=== PATIENT | female | born 1945 | race Caucasian/White ===

== ENCOUNTER → 2020-11-06 | Outpatient (CLI) | payer MEDICARE, OTHER ==
--- NOTE | 2020-11-06 15:35 | XR ---
EXAMINATION TYPE: XR chest 2V DATE OF EXAM: 11/06/2020 COMPARISON: 12/01/2013 TECHNIQUE: PA and lateral views submitted. HISTORY: COPD FINDINGS: The lungs are clear and there is no pneumothorax, pleural effusion, or focal pneumonia. Hiatal juan jose ia noted. There is hypertrophic and degenerative changes of the spine with age indeterminate compress ion deformities. There are couple. Progressed from the prior exam of 14 with a severe deformity seen in the lower thoracic spine. Atherosclerotic change aorta. No overt failure. No pneumothorax. Coarsen ed interstitium. IMPRESSION: 1. No acute process. Coarsened interstitium correlate for chronic interstitial lung disease. 2. Retrocardiac density may represent aortic ectasia or small hiatal hernia. 3. Progression of numerous compression fractures throughout the thoracic spine correlate clinically.
--- NOTE | 2020-11-06 15:37 | XR ---
EXAMINATION TYPE: XR knee complete LT DATE OF EXAM: 11/06/2020 COMPARISON: NONE HISTORY: Pain TECHNIQUE: Three views are submitted. FINDINGS: Joint spaces are preserved. Osseous structures are intact. No acute fracture seen. Postsurgical ch cabrera involving the tibia. Narrowing of the medial lateral compartments of the knee joint. Vascular ca lcifications noted. IMPRESSION: 1. No acute fracture or dislocation. 2. Osteoarthritis. 3. Diffuse osteopenia.
== END | disposition home or self-care (01) ==
LOC: RADXRYALE 15:02
PROVIDERS: ATTEND Physician Assistant Medical
DX: M17.12 Unilateral primary osteoarthritis, left knee (principal); M85.862 Other specified disorders of bone density and structure, left lower leg; S22.008A Other fracture of unspecified thoracic vertebra, initial encounter for closed fracture; J44.9 Chronic obstructive pulmonary disease, unspecified
CPT/HCPCS: 71046

== ENCOUNTER → 2021-03-19 | Outpatient (CLI) | payer MEDICARE, OTHER ==
--- NOTE | 2021-03-19 17:39 | XR ---
Left ankle and left foot HISTORY: Trauma 4 days prior, pain 3 views the left ankle, 3 views of the left foot submitted There is an oblique fracture with minimal displacement of the distal diaphyseal left fibula. Question some local cortical thickening on the oblique view, findings may be chronic. There is soft tissue sw elling. Bone mineralization is reduced. Cortical lucency is also present at the metaphysis of the dis ym right tibia medially and also noted posteriorly on the lateral exam. Questionable lucency also pr esent of the distal tibia on the oblique view into the tibiotalar joint. Foot also shows decreased mi neralization. This could limit evaluation. IMPRESSION: Findings consistent with distal tibia and fibular fractures, acuity is indeterminate, cor relate for history of remote trauma and fracture. Alternate imaging could be performed for additional evaluation as indicated.
== END | disposition home or self-care (01) ==
LOC: RADXRYALE 14:59
PROVIDERS: ATTEND Physician Assistant
DX: M79.672 Pain in left foot (principal)

== ENCOUNTER → 2021-04-04 | Outpatient (CLI) | payer MEDICARE, OTHER ==
--- NOTE | 2021-04-04 14:41 | CT ---
EXAMINATION TYPE: CT ankle LT wo con DATE OF EXAM: 04/04/2021 COMPARISON: 03/19/2021 HISTORY: Left ankle pain after fall. CT DLP: 247.8 mGycm Automated exposure control for dose reduction was used. CONTRAST: CT scan of the ankle is performed without contrast. FINDINGS- Casting material is seen which obscures bony detail. There is severe diffuse osteopenia.. Appears to be fracture line extending to the ankle mortise involving the medial margin of the distal tibia and i nvolving the medial malleolus. Sagittal image demonstrates a mildly displaced posterior tibial fracture. There also appears to be a fracture with mild facet placement involving the distal diaphysis of the f ibula. There is no significant callus formation. Ankle mortise joint spaces preserved. Tiny calcification or metallic density seen overlying the plantar surface of the foot adjacent to the lateral margin of th e calcaneus. Soft tissue edema noted. IMPRESSION- 1. Severe osteopenia with mildly displaced fracture involving the distal diaphysis fibula, distal med ial tibia, and posterior margin of the tibia
== END | disposition home or self-care (01) ==
LOC: RADCTMAIN 14:03
PROVIDERS: ATTEND Orthopaedic Surgery
DX: S82.842A Displaced bimalleolar fracture of left lower leg, initial encounter for closed fracture (principal); M25.572 Pain in left ankle and joints of left foot; X58.XXXA Exposure to other specified factors, initial encounter

== ENCOUNTER → 2021-05-14 | Outpatient (CLI) | payer MEDICARE, OTHER ==
--- NOTE | 2021-05-14 17:21 | BD ---
EXAMINATION TYPE: Axial Bone Density DATE OF EXAM: 05/14/2021 COMPARISON: NONE CLINICAL HISTORY: Postmenopausal screening Height: 57.5 IN Weight: 131 LBS FRAX RISK QUESTIONS: Family History (Parent hip fracture): YES MOTHER History of Fracture in Adulthood: LT ANKLE FX AGE 73; BALA TIB FIB FX AGE 67; BALA RIB FX OFF AND ON S NANCIE AGE 62 Secondary Osteoporosis: Current Tobacco Use: YES RISK FACTORS HISTORY OF: Family History of Osteoporosis: YES MOTHER Active: LIMITED Diet low in dairy products/other sources of calcium: YES Postmenopausal woman: AGE 52 TOTAL HYST Take estrogen and/or progesterone medications: NOT NOW How long: AGE [age] Lost more than 2 inches in height since high school: YES 4+" MEDICATIONS: Osteoporosis Medications: NOT NOW Which medication: Boniva How Lon MONTHS Additional Medications: VIT D, CALCIUM, CELEBREX EXAM MEASUREMENTS: Bone mineral densitometry was performed using the [employer] System. Bone mineral density as measured about the Lumbar spine is: ----- L1-L4(G/cm2): 0.895 T Score Values are as follows: ----- L2: -1.7 ----- L3: -2.6 ----- L4: -3.2 ----- L1-L4: -2.4 Bone mineral density BASELINE Bone mineral density about the R hip (g/cm2): 0.707 Bone mineral density about the L hip (g/cm2): 0.733 T Score values are as follows: -----R Neck: -2.4 -----L Neck: -2.2 -----R Total: -3.1 -----L Total: -2.6 Bone mineral density BASELINE IMPRESSION: Osteoporosis (T Score less than -2.5). There is increased fracture risk and therapy is usually indicated based on age. Re-Screen 1-2 years. NOTE: T-SCORE=SD OF THE YOUNG ADULT MEAN.
--- NOTE | 2021-05-15 10:49 | MM ---
Reason for exam: screening (asymptomatic). History: Patient is postmenopausal. Took estrogen for 1 year beginning at age 52. Physical Findings: A clinical breast exam by your physician is recommended on an annual basis and results should be correlated with mammographic findings. MG 3D Screening Mammo W/Cad Bilateral CC and MLO view(s) were taken. No prior studies available for comparison. There are scattered fibroglandular densities. Stable benign calcifications. There is no discrete abnormality. No significant changes when compared with prior studies. ASSESSMENT: Benign, BI-RAD 2 RECOMMENDATION: Routine screening mammogram of both breasts in 1 year.
== END | disposition home or self-care (01) ==
LOC: RADBDWWP 13:20
PROVIDERS: ATTEND Family Medicine
DX: Z12.31 Encounter for screening mammogram for malignant neoplasm of breast (principal); M81.0 Age-related osteoporosis without current pathological fracture
CPT/HCPCS: 77063; 77067; 77080

== ENCOUNTER → 2022-09-16 | Outpatient (CLI) | payer MEDICARE, OTHER ==
--- NOTE | 2022-09-17 08:49 | XR ---
EXAMINATION TYPE: XR chest 2V DATE OF EXAM: 09/16/2022 COMPARISON: 11/06/2020 TECHNIQUE: PA and lateral views submitted. HISTORY: Shortness of breath FINDINGS: The lungs are clear and there is no pneumothorax, pleural effusion, or focal pneumonia. Heart size normal and no overt failure. Osseous structures demonstrate hypertrophic and degenerative changes of the spine. Dictation of the aorta noted. Prominence of the pulmonary arteries can be associated with pulmonary arterial hypertension. Numerous chronic appearing compression fractures are again noted and appear similar to prior exam. Re sultant kyphosis of the spine. Chronic rib deformities are noted. Coarsened interstitium suggests chr onic interstitial lung disease and there is hyperinflation suggestive of COPD. IMPRESSION: 1. No acute process. Correlate for COPD and chronic interstitial lung disease
== END | disposition home or self-care (01) ==
LOC: RADXRYALE 16:17
PROVIDERS: ATTEND Physician Assistant
DX: R06.02 Shortness of breath (principal)
CPT/HCPCS: 71046

== ENCOUNTER → 2022-12-02 | Outpatient (CLI) | payer MEDICARE, OTHER ==
--- NOTE | 2022-12-04 08:48 | CTL ---
EXAMINATION TYPE: CT Low Dose Lung DATE OF EXAM ORDERED: 12/02/2022 HISTORY: Z12.2; Z87.891. Current smoker, 50 pack year history. Lung cancer screening CT DLP: 67.[address] CTDI: 2.1 mGy Automated exposure control for dose reduction was used. SCREENING VISIT: First screening visit COMPARISON: Chest radiograph 11/11/2022 TECHNIQUE: Low dose computed tomography scan was performed through the chest at 1 mm thick sections a nd reconstructed images in multiple planes at 1 mm and [address] DIAGNOSTIC QUALITY: Satisfactory FINDINGS: LUNG NODULES: No clinically significant pulmonary nodules. LUNGS: COPD: Severity: Moderate Fibrosis: Severity: Mild Lymph nodes: None Other findings: None RIGHT PLEURAL SPACE: Effusion: None Calcification: None Thickening: None Pneumothorax: None LEFT PLEURAL SPACE: Effusion: None Calcification: None Thickening: None Pneumothorax: None HEART: Heart Size: Normal Coronary Calcification: Moderate Pericardial Effusion: None OTHER FINDINGS: Upper abdomen: None Bony thorax: No acute osseous abnormality. Multilevel chronic appearing central compression deformiti es of the thoracolumbar spine involving T3, T5, T6, T7, T8, T9, T10, T11, T12, L1, and L2. Resulting in increased thoracic kyphosis. Remote sternal fracture. Remote left-sided rib fractures. Supraclavicular region: None Other: Tortuous descending thoracic aorta. Atherosclerotic calcification of the aorta and its branche s. IMPRESSION: 1. No clinically significant pulmonary nodules. 2. Mild to moderate COPD changes and fibrotic changes. 3. Multilevel chronic appearing compression fractures of the thoracic lumbar spine. CT LUNG RAD AND CT CHEST RECOMMENDATION: Lung-Rad 1 Negative: Continue annual screening with LDCT in 12 months. S Modifier (other clinically significant findings): None
== END | disposition home or self-care (01) ==
LOC: RADCTMAIN 14:54
PROVIDERS: ATTEND Internal Medicine
DX: Z12.2 Encounter for screening for malignant neoplasm of respiratory organs (principal); J44.9 Chronic obstructive pulmonary disease, unspecified; M48.55XA Collapsed vertebra, not elsewhere classified, thoracolumbar region, initial encounter for fracture; F17.210 Nicotine dependence, cigarettes, uncomplicated
CPT/HCPCS: 71271

== ENCOUNTER → 2023-05-20 | Outpatient (CLI) | payer MEDICARE, OTHER ==
--- NOTE | 2023-05-20 18:04 | CA ---
Transthoracic Echo Report Name: Lia Calderon Age: 77 Gender: F : 1945 Exam Date: 05/20/2023 16:11 Exam Location: [facility] Ht (in): 59 Wt (lb): 115 Ordering Physician: Jett Lindquist MD Attending/Referring Phys: Maci Malone NPC Svp Group Director Tiara Castillo RDCS Procedure CPT: Indications: I51.7 Cardiomegaly Cardiac Hx: smoker Technical Quality: Fair Contrast 1: Total Dose (mL): Contrast 2: Total Dose (mL): MEASUREMENTS (Male / Female) Normal Values 2D ECHO LV Diastolic Diameter PLAX 4.3 cm 4.2 - 5.9 / 3.9 - 5.3 cm LV Systolic Diameter PLAX 2.9 cm IVS Diastolic Thickness 1.2 cm 0.6 - 1.0 / 0.6 - 0.9 cm LVPW Diastolic Thickness 0.9 cm 0.6 - 1.0 / 0.6 - 0.9 cm LV Relative Wall Thickness 0.5 RV Internal Dim ED PLAX 3.8 cm LVOT Diameter 2.0 cm LA Systolic Diameter LX 3.6 cm 3.0 - 4.0 / 2.7 - 3.8 cm LV Diastolic Volume MOD 4C 44.5 cm??? LV Systolic Volume MOD 4C 22.0 cm??? LV Ejection Fraction MOD 4C 50.6 % LV Cardiac Index MOD 4C 1141.1 cm???/min???m??? LV Diastolic Length 4C 6.8 cm LV Systolic Length 4C 6.1 cm LV Diastolic Volume MOD 2C 120.6 cm??? LV Systolic Volume MOD 2C 75.5 cm??? LV Ejection Fraction MOD 2C 37.4 % LV Cardiac Index MOD 2C 2282.0 cm???/min???m??? LV Diastolic Length 2C 6.8 cm LV Systolic Length 2C 6.0 cm LA Volume 36.1 cm??? 18 - 58 / 22 - 52 cm??? LA Volume Index 24.4 cm???/m??? 16 - 28 cm???/m??? M-MODE Aortic Root Diameter MM 2.8 cm AV Cusp Separation MM 1.5 cm DOPPLER AV Peak Velocity 129.3 cm/s AV Peak Gradient 6.7 mmHg MV Area PHT 2.8 cm??? Mitral E Point Velocity 40.0 cm/s Mitral A Point Velocity 77.7 cm/s Mitral E to A Ratio 0.5 MV Deceleration Time 269.3 ms MV E' Velocity 2.1 cm/s Mitral E to MV E' Ratio 19.1 TR Peak Velocity 459.7 cm/s TR Peak Gradient 84.5 mmHg Right Ventricular Systolic Press 92.0 mmHg FINDINGS Left Ventricle Left ventricular ejection fraction is estimated at 40-45 %. Left ventricular cavity size normal. Mildly increased septal wall thickness. Flattening of ventricular septum in systole and diastole Right Ventricle Moderate right ventricular dilatation. Severe pulmonary hypertension. Right ventricular systolic pressure estimated at 92 mm hg.reduced right ventricular global systolic function. Right Atrium Normal right atrial size. Left Atrium Normal left atrial size. Mitral Valve Structurally normal mitral valve. No mitral stenosis or prolapse.mild mitral regurgitation. Aortic Valve Trileaflet aortic valve. No aortic valve stenosis or regurgitation. Tricuspid Valve Structurally normal tricuspid valve. [id number] tricuspid regurgitation. Pulmonic Valve Pulmonic valve not well visualized. No pulmonic regurgitation. Pericardium No pericardial effusion. Aorta Normal size aortic root and proximal ascending aorta. CONCLUSIONS 1. Moderate global hypokinesis of the left ventricle systolic function with evidence of right ventricular pressure overload 2. Dilated right ventricle with hypokinesis and severe pulmonary hypertension 3. Mild to moderate tricuspid regurgitation with mild mitral regurgitation Previewed by: Dr. Isaura Gabriel MD (Electronically Signed) Final Date: 20 May 2023 18:04
== END | disposition home or self-care (01) ==
LOC: RADECHMAIN 15:56
PROVIDERS: ATTEND Family Medicine
DX: I27.20 Pulmonary hypertension, unspecified (principal); I34.0 Nonrheumatic mitral (valve) insufficiency; I51.7 Cardiomegaly; I36.1 Nonrheumatic tricuspid (valve) insufficiency
CPT/HCPCS: 93306

== ENCOUNTER 2023-07-28 09:45 | Day surgery (SDC) | payer MEDICARE, OTHER ==
[~2023-07-28 09:45] MED LIST: ALPRAZolam 0.25 MG TAB PO PRN; NITROGLYCERIN SL TABS 0.4 MG TAB SUBLINGUAL PRN
[2023-07-28 10:22] LABS: Basophils # (A) 0.1 k/uL (0-0.2); Basophils % (A) 1 %; Eosinophils # (A) 0.1 k/uL (0-0.7); Eosinophils % (A) 1 %; HGB 16.3 gm/dL (11.4-16.0); Lymphocytes # (A) 2.9 k/uL (1.0-4.8); Lymphocytes % (A) 18 %; MCH 30.5 pg (25.0-35.0); MCV 95.2 fL (80.0-100.0); Mean Platelet Volume 8.2; Monocytes % (A) 6 %; Neutrophils # (A) 11.5 k/uL (1.3-7.7); Neutrophils % (A) 72 %; Platelet Count 256 k/uL (150-450); RBC 5.36 m/uL (3.80-5.40); RDW 14.1 % (11.5-15.5); WBC 15.9 k/uL (3.8-10.6)
[2023-07-28] MEDS: SODIUM CHLORIDE 0.9% 1,000 ML in EMPTY BAG 1 BAG IV SCH (10:28)
[2023-07-28 10:43] LABS: African American GFR (CKD) 57 (>60 ml/min/1.73 sqM); Anion Gap 11 mmol/L; Blood Urea Nitrogen 32 mg/dL (7-17); Calcium 9.4 mg/dL (8.4-10.2); Carbon Dioxide 18 mmol/L (22-30); Chloride 110 mmol/L (98-107); Glucose 104 mg/dL (74-99); Non-African American GFR(CKD) 49 (>60 ml/min/1.73 sqM); Sodium 139 mmol/L (137-145)
[2023-07-28] MEDS: ALPRAZolam 0.5 MG TAB PO PRN (11:30)
[2023-07-28] MEDS: fentaNYL (PF) 50 MCG/ML 2 ML AMP IVP ONE ×2 (12:15)
[2023-07-28] MEDS: MIDAZOLAM 2 MG/2 ML VIAL IVP ONE (12:15)
[2023-07-28] MEDS: LIDOCAINE 1% INJ 10MG/ML (20 ML MDV) SQ ONE (12:17)
[2023-07-28] MEDS: VERAPAMIL 2.5 MG/ML 2 ML AMP INTRAARTER ONE (12:21)
[2023-07-28] MEDS: SODIUM CHLORIDE 0.9% 1,000 ML IV ONE (12:40)
[2023-07-28 12:58] LABS: O2 Sat Blood Gas 82.7 %
[2023-07-28 13:08] LABS: O2 Sat Blood Gas 55.8 %
[2023-07-28 13:09] LABS: O2 Sat Blood Gas 53.4 %
[2023-07-28] MEDS: HEPARIN SODIUM 1,000 UN/ML (10ML VL) IV ONE (13:30)
[2023-07-28] MEDS: CLOPIDOGREL 75 MG TAB PO ONE (13:43)
[2023-07-28] MEDS: IOPAMIDOL-370 100ML BTL INJ ONE ×2 (13:44→14:13)
[2023-07-28] MEDS: NITROGLYCERIN 1000MCG/10ML SYRINGE INTRACORON ONE (13:51)
--- NOTE | 2023-07-28 14:01 | P.CARDCATH ---
Date of Procedure: 07/28/23 Description of Procedure: DIAGNOSTIC CORONARY ANGIOGRAPHY, RIGHT and LEFT HEART CATH REPORT PROCEDURES PERFORMED: Right heart catheterization Left heart catheterization Selective coronary angiography Moderate conscious sedation 50 mins Ultrasound assisted right radial access Ultrasound assisted right common femoral access Right common femoral arteriogram Right subclavian artery arteriogram INDICATION: 77-year-old female with past medical history of smoking, hypertension presented to cardiology clinic because of dyspnea on exertion. She reports that her symptoms have got worse last few months. She reports getting short of breath after walking 1 block. This puts her at NYHA class III to IV symptoms. Her echocardiogram showed an EF of 40 to 45%. It also showed severe pulmonary hypertension. To further workup patient's symptoms, cardiomyopathy and pulmonary hypertension we will plan for left and right heart catheterization. CONSENT: I have explained the procedural steps of above-mentioned procedures in layman's terms to the patient. I discussed the risks (including but not limited to stroke, emergent vascular or cardiac surgery or ), benefits and alternative therapies for the above-mentioned procedure. I discussed the risks of sedation/analgesia and blood product administration (if indicated). The patient has indicated understanding and acceptance of these risks. Conscious Sedation: Patient's ECG, heart rate, blood pressure, pulse oximetry were monitored throughout the duration of procedure under my direct supervision. [2] mg Versed and 25 mg Fentanyl were used for induction of moderate conscious sedation. Total duration of moderate concious sedation 60 minutes. PROCEDURE: After explaining the risks, benefits and alternatives of the above mentioned procedures in detail to the patient, informed consent was obtained. Patient was taken to the catheterization lab, prepped and draped in usual sterile fashion using universal precuations. Barbow and alix test were performed to confirm adequate perfusion to fingers. Ultrasound was used to identify the radial artery. 1% lidocaine was infiltrated over the right radial artery. A 6-Wallisian sheath was placed and secured in the right radial artery using modified Seldinger technique. The sheath was flushed and 2.5 mg verapamil was administered intra-arterially. Right antecubital vein access was obtained in the pre of holding area. 1% lidocaine was infiltrated in the right antecubital area. Right antecubital vein cannula was exchanged over the wire for the 6 Wallisian slender glide sheath. The sheath was secured and flushed. Through the sheath a 6 [place] catheter was advanced to the wedge position. The wedge pressures were obtained. Sequential pressures were obtained from pulmonary artery, right ventricle, right atrium. Blood samples were collected from pulmonary artery right ventricle and right atrium. Thermodilution study was performed while the catheter tip was placed in pulmonary artery. J tipped wire was advanced under fluoroscopic guidance. The wire could not be advanced from the right subclavian artery to the ascending aorta. Over the J- wire JR4 diagnostic catheter was advanced. Right subclavian artery angiogram was performed. A Glidewire was advanced with the JR4 catheter. This wire could not cross into the ascending aorta. The wire and the catheter was removed. Decision was made to proceed with right common femoral access. Right common femoral artery was identified using the ultrasound. 1% lidocaine was infiltrated over the right common femoral artery. Using ultrasound guidance and modified Seldinger technique using a micropuncture needle right common femoral access was obtained. The needle was exchanged over the wire for a 6 Wallisian slender glide sheath. The sheath was flushed and secured. Right common femoral angiogram was performed. Through the sheath the wire was advanced into the aorta. The aorta is very tortuous. A JR4 catheter was loaded over the wire to direct the wire to the ascending aorta. With the help of the wire JR4 catheter was prolapsed across the aortic valve to enter the LV. The wire was removed LV pressures were obtained. A pullback was performed. The catheter was manipulated to selectively engage right coronary ostium. Right coronary angiogram was performed. The catheter was exchanged over the wire for a JL 3.5 diagnostic catheter. The catheter was flushed and manipulated to engage the left coronary ostium. Left coronary angiogram was performed in different angiographic projections. After review of images, we decided to consult associate software development engineer for PCI of LCx and IFR assessment of proximal LAD. HEMODYNAMICS: Aortic Pressure: 105/51 mmHg. LV pressure: 111/4 mmHg. LVEDP 13 mmHg. There was no significant gradient across the aortic valve. Right heart catheterization Mean RA pressure 9 mmHg RV pressure 75/5 mmHg. RVEDP 13 mmHg PA pressure 75/40 mmHg. mean PA pressures 51 mmHg Mean wedge pressure 7 mmHg PA sat 53% RV sat 54% RA sat 56% FA sat 83% Patient was at room air Heart rate 64 bpm, BSA 1.43, hemoglobin 13.1. Merry cardiac output 3.9 L/min. Merry cardiac index 2.77 L/min/m Thermodilution cardiac output 2.6 L/min. Thermodilution cardiac index 1.8 L/min/m Transpulmonary gradient 44 mmHg Pulmonary vascular resistance 11 vanegas unit SELECTIVE CORONARY ARTERIOGRAPHY: LEFT MAIN: Left main is very short. Ostial left main has 20% stenosis. It bifurcates into LAD and LCx. LEFT ANTERIOR DESCENDING CORONARY ARTERY: Proximal LAD has 30 to 40% luminal i rregularities. Mid and distal LAD has mild luminal diabetes. It gives rise to 2 medium size diagonal branches appears in graphically normal. After giving second diagonal branch LAD becomes small. LEFT CIRCUMFLEX CORONARY ARTERY: It is nondominant vessel. Left circumflex is a moderate caliber vessel. Mid LAD has tubular calcific 90% stenosis. RIGHT CORONARY ARTERY: Dominant vessel. Proximal RCA has 20 to 30% diffuse calcific irregularities. Mid RCA has 30 to 40% calcific disease. Mid RCA has a small ectasia. Distal RCA has mild luminal irregularities. It gives rise to PDA and PL branches which appears angiographically normal IMPRESSION: 90% mid LCx stenosis 30% Proximal LAD 20% ostial LM disease Moderate nonobstructive calcific disease in RCA. Severe pulmonary hypertension, less likely group 2. Most likely group 3 Tortuous descending aorta. Tortuous right subclavian artery PLAN: Plan for IFR assessment of LAD and PCI of LCx. Discussed with Dr. Sanchez Further recommendations to follow. Performing Physician Felice Olguin MD, FACC, RPVI Thank you for allowing [facility] to participate in this patient's care. Feel free to reach out in case of any followup questions.
[2023-07-28] MEDS ORDERED: RX INFO: IV CONTRAST WAS GIVEN 1 EACH MISC MISCELLANE PRN (14:08)
--- NOTE | 2023-07-28 14:18 | P.PN ---
Subjective Progress Note Date: 07/28/23 Patient had an outpatient heart catheterization today She got intervention to left circumflex artery. This was done via right common femoral approach. She also has a right radial TR band. We also performed a right radial heart cath using right antecubital vein. Plan to remove right femoral arterial sheath once the ACT is less than 180. We did not do a closure device because of calcification noticed on ultrasound of right common femoral artery. We will monitor patient overnight I have educated the family. I have notified the family that time indication for next 2 weeks tomorrow. In case they have any questions regarding cardiology care they can contact our clinic. If right groin site and right radial site appears intact, patient can be discharged home tomorrow. Recommended discharge medications aspirin 81, Plavix 75 mg, atorvastatin 40 mg. Smoking cessation Outpatient follow-up with pulmonology for group 3 pulmonary hypertension. Patient would benefit from supplemental oxygen. Felice Olguin MD Objective - Vital Signs Vital signs: Vital Signs Temp 97.9 F 07/28/23 10:17 Pulse 70 07/28/23 10:17 Resp 18 07/28/23 10:17 BP 141/95 07/28/23 10:17 Pulse Ox 100 07/28/23 10:17 FiO2 Intake & Output 07/27/23 07/28/23 07/28/23 18:59 06:59 18:59 Intake Total 1450 Balance 1450 Weight 49.5 kg Intake: IV 1450 - Labs CBC & Chem 7: 07/28/23 10:05 07/28/23 10:05 Labs: Abnormal Lab Results - Last 24 Hours (Table) 07/28/23 07/28/23 Range/Units 10:05 10:05 WBC 15.9 H (3.8-10.6) k/uL Hgb 16.3 H (11.4-16.0) gm/dL Hct 51.0 H (34.0-46.0) % Neutrophils # 11.5 H (1.3-7.7) k/uL Chloride 110 H (98-107) mmol/L Carbon Dioxide 18 L (22-30) mmol/L BUN 32 H (7-17) mg/dL Creatinine 1.10 H (0.52-1.04) mg/dL Glucose 104 H (74-99) mg/dL
--- NOTE | 2023-07-28 14:21 | P.PRCINT ---
Percutaneous Coronary Int. - Percutaneous Coronary Intervention Percutaneous Coronary Intervention: PROCEDURES PERFORMED: Left coronary angiography, iFR of LAD, iFR of circumflex, PCI of mid circumflex with a 2.25 x 15mm Xience ISABEL, post dilated with a 2.5mm NC balloon INDICATION: cardiomyopathy, dyspnea and exertion with [place] Heart Association class III symptoms CONSENT:I have discussed the risks, benefits and alternative therapies for the above-mentioned procedure and for both sedation/analgesia as well as necessary blood product administration, if indicated, as they pertain to this patient. The patient has indicated understanding and acceptance of the risks and procedures discussed. PROCEDURE: After the risks, benefits and alternatives of the above mentioned procedure explained in detail with the patient, informed consent was obtained. Patient was taken to the catheterization lab and prepped and draped in usual fashion. right radial sheath had been placed however difficulty navigating the torturous subclavian and therefore a 6-Egyptian sheath had previously been placed in the femoral artery. There was some concern of proximal LAD disease and therefore iFR of the LAD and circumflex was recommended. Heparin was given. A 6-Egyptian CLS 3.0 guide was used to engage the left main. A 0.014 pressure wire was advanced in the proximal LAD and normalized. It was then advanced into the mid LAD and iFR was normal at 0.98. Next the wire was again normalized and then placed 1 cm distal to the circumflex lesion. iFR was abnormal at 0.70. The decision was made to perform PCI of the circumflex. Predilation was performed with a 2.5 x 8 mm balloon. Next a 2.25 x 15 mm Xience ISABEL was placed in the mid circumflex. The proximal and midportion of the stent were postdilated with a 2.5 noncompliant balloon. Final angiograms were performed. Preintervention there was 90% stenosis and KATHRYN-3 flow and postintervention there was less than 10% stenosis and KATHRYN-3 flow. The femoral artery appeared to be small caliber and felt best treated with manual pull. The right radial sheath was removed and a TR band was placed with hemostasis achieved. The patient tolerated the procedure well. Patient was transported back to the post catheterization holding area in stable condition. Conscious Sedation: Patient was monitored under the direct supervision of myself for conscious sedation using Versed and fentanyl for a total duration of 37 minutes HEMODYNAMICS: Ao: 133/77 SELECTIVE CORONARY ARTERIOGRAPHY: LEFT MAIN: The left main is a large caliber vessel which bifurcates into the LAD and circumflex. There is no significant stenosis. LEFT ANTERIOR DESCENDING CORONARY ARTERY: LAD is a large caliber vessel which wraps around to the apex. There is a proximal LAD 30-40% stenosis and mild 20- 30% mid LAD stenosis. LEFT CIRCUMFLEX CORONARY ARTERY: Left circumflex is a moderate caliber vessel with a mid circumflex 90% stenosis and other mild luminal irregularities. The circumflex is significantly pressure was. RIGHT CORONARY ARTERY: The right coronary artery was not imaged, see separate report FINAL IMPRESSION: 1. CAD as described above including proximal LAD 30-40%, mid circumflex 90% stenosis 2. Normal iFR LAD, abnormal iFR circumflex 3. S/p PCI of mid circumflex with a 2.25 x 15mm Xience ISABEL, post dilated with a 2.5mm NC balloon PLAN: 1. Aggressive risk factor modification per most recent ACC/AHA guidelines. 2. Dual antiplatelets with aspirin and Plavix for 6 months. 3. Advised tobacco cessation in detail with patient and patient understanding. Additionally gave patient information for [place] quit line.
[2023-07-28] MEDS: SODIUM CHLORIDE 0.9% 1,000 ML IV SCH (18:37)
[2023-07-28] MEDS: ASPIRIN 325 MG TAB PO ONE (19:51)
[2023-07-28] MEDS: ATORVASTATIN 40 MG TAB PO SCH (20:38)
[2023-07-29 07:59] VITALS: BP 115/72; PULSE 73; RESP 15; TEMP 97.9
[2023-07-29] MEDS: CLOPIDOGREL 75 MG TAB PO SCH (08:22)
[2023-07-29] MEDS: ASPIRIN 81 MG PO SCH (08:23)
--- NOTE | 2023-07-29 09:42 | P.DS ---
Providers Attending physician: Felice Olguin MD Primary care physician: Jodi Mercy Hospital Course: Patient is a pleasant 77 yo female with history of tobacco abuse and mild cardiomyopathy who has been having significant BISHOP and therefore underwent left and right heart cath 07/27 with findings of obstructive circumflex disease and underwent successful PCI of mid circumflex. Her radial and femoral site are stable with no hematoma. She admits she feels somewhat better even just walking to the bathroom. She will be on aspirin and Plavix for 6 months. Plan - Discharge Summary Discharge Rx Participant: Yes New Discharge Prescriptions: New Aspirin 81 mg PO DAILY 90 Days #90 tab Atorvastatin [Lipitor] 40 mg PO HS 90 Days #90 tab Clopidogrel [Plavix] 75 mg PO DAILY 90 Days #90 tab Continue Baclofen [Lioresal] 20 mg PO Q8H PRN PRN Reason: Muscle Pain Mirtazapine [Remeron] 15 mg PO HS Sertraline [Zoloft] 100 mg PO HS Fluticasone/Umeclidin/Vilanter [Trelegy Ellipta 100-62.5-25] 1 inhalation INHALATION DAILY Acetaminophen [Tylenol Extra Strength] 1,000 mg PO Q8H PRN PRN Reason: Pain Discontinued Aspirin 81 mg PO DAILY PRN PRN Reason: Per Protocol Discharge Medication List Baclofen [Lioresal] 20 mg PO Q8H PRN 02/09/14 [History] Acetaminophen [Tylenol Extra Strength] 1,000 mg PO Q8H PRN 07/25/23 [History] Fluticasone/Umeclidin/Vilanter [Trelegy Ellipta 100-62.5-25] 1 inhalation INHALATION DAILY 07/25/23 [History] Mirtazapine [Remeron] 15 mg PO HS 07/25/23 [History] Sertraline [Zoloft] 100 mg PO HS 07/25/23 [History] Aspirin 81 mg PO DAILY 90 Days #90 tab 07/28/23 [Rx] Atorvastatin [Lipitor] 40 mg PO HS 90 Days #90 tab 07/28/23 [Rx] Clopidogrel [Plavix] 75 mg PO DAILY 90 Days #90 tab 07/28/23 [Rx] Follow up Appointment(s)/Referral(s): Felice Olguin MD [Medical Doctor] - 1 Week Patient Instructions/Handouts: Moderate Sedation (DC), After Radial Heart Catheterization (GEN) Activity/Diet/Wound Care/Special Instructions: *NO LIFTING, PUSHING, OR PULLING ANYTHING OVER 5 POUNDS FOR 5 DAYS *NO DRIVING FOR 3 DAYS *YOU CAN REMOVE YOUR DRESSING TOMORROW BUT DO NOT SUBMERSE YOUR PUNCTURE SITE IN WATER FOR A FEW DAYS TO PREVENT INFECTION - SO NO TUB BATHS, POOLS, HOT TUBS, DISHES...ETC *ANY SIGNS OF BLEEDING (HARDNESS, SWELLING, OR EXCESSIVE BRUISING) HOLD DIRECT PRESSURE ON YOUR PUNCTURE SITE AND COME TO THE NEAREST EMERGENCY ROOM TO GET YOUR PUNCTURE SITE LOOKED AT - DO NOT DRIVE YOURSELF! EITHER CALL EMS OR HAVE SOMEONE DRIVE YOU!
[2023-07-29 12:27] LABS: Basophils # (A) 0.08 X 10*3/uL (0.00-0.10); Basophils % (A) 0.7 %; Eosinophils # (A) 0.12 X 10*3/uL (0.04-0.35); HGB 13.9 g/dL (12.0-15.0); Lymphocytes # (A) 2.14 X 10*3/uL (0.90-5.00); Lymphocytes % (A) 18.3 %; MCH 30.8 pg (27.0-32.0); MCHC 33.1 g/dL (32.0-37.0); MCV 93.1 FL (80.0-97.0); Mean Platelet Volume 11.3 FL (9.5-12.2); Monocytes # (A) 0.84 X 10*3/uL (0.20-1.00); Monocytes % (A) 7.2 %; NRBC Per 100 WBC 0 X 10*3/uL (0.00-0.01); Neutrophils % (A) 72.5 %; Platelet Count 192 X 10*3/uL (140-440); RBC 4.51 X 10*6/uL (4.10-5.20); RDW 14.3 % (11.5-14.5); WBC 11.72 X 10*3/uL (4.50-10.00)
[2023-07-29 12:39] LABS: ALT 8 U/L (8-44); AST 24 U/L (13-35); Albumin 3.8 g/dL (3.8-4.9); Albumin/Globulin Ratio 1.46 Ratio (1.60-3.17); Alkaline Phosphatase 60 U/L (41-126); BUN/Creat Ratio 21.67 Ratio (12.00-20.00); Blood Urea Nitrogen 19.5 mg/dL (9.0-27.0); Calcium 8.6 mg/dL (8.7-10.3); Carbon Dioxide 15.1 mmol/L (21.6-31.8); Chloride 111 mmol/L (96-109); Globulin 2.6 g/dL (1.6-3.3); Glucose 87 mg/dL (70-110); Potassium 4.6 mmol/L (3.5-5.5); Sodium 139 mmol/L (135-145); Total Bilirubin 0.6 mg/dL (0.3-1.2); Total Protein 6.4 g/dL (6.2-8.2)
== END 2023-07-29 11:24 | disposition home or self-care (01) ==
LOC: CATHCVL 09:45 → 6NMEDSUR 14:03 → CATHCVL 07-29 11:24
PROVIDERS: ATTEND Student in an Organized Health Care Education/Training Program
DX: I42.9 Cardiomyopathy, unspecified (principal); I10 Essential (primary) hypertension; I25.10 Atherosclerotic heart disease of native coronary artery without angina pectoris; I27.20 Pulmonary hypertension, unspecified; Z79.02 Long term (current) use of antithrombotics/antiplatelets; Z79.82 Long term (current) use of aspirin; Z87.891 Personal history of nicotine dependence; Z95.5 Presence of coronary angioplasty implant and graft; Z79.899 Other long term (current) drug therapy
CPT/HCPCS: 93460; 93799; 76937; 80053; 80048; 85018; 82810; 85025 ×2; 99152; 99153 ×2; C9600; C1769 ×4; C1887; C1894 ×2; C1725 ×2; C1751; C1874; J2250; J2001; J3010; J1644; Q9967; J2305